=== PATIENT | male | born 1960 | race Hispanic/Latino ===

== ENCOUNTER 2021-05-14 12:57 | Inpatient (IN) | payer MEDICAID ==
[2021-05-14] MEDS ORDERED: ACETAMINOPHEN 325 MG TAB PO SCH (16:00)
[2021-05-14] MEDS ORDERED: ACETAMINOPHEN 325 MG TAB PO PRN (21:51)
[2021-05-14] MEDS ORDERED: risperiDONE 1 MG TAB PO SCH (22:00)
[2021-05-14] MEDS: NITROFURANTOIN MONOHYD/M-CRYST 100 MG CAP PO SCH (23:09)
[2021-05-14] MEDS: ASPIRIN 81 MG TAB CHEW PO SCH (23:10)
[2021-05-15 06:33] LABS: Basophils # (Auto) 0.1 K/mm3 (0.0-0.1); Basophils % (Auto) 0.9 % (0.0-1.8); Eosinophils # (Auto) 0.3 K/mm3 (0.0-0.4); Eosinophils % (Auto) 3.8 % (0.0-4.3); Hematocrit 38.9 % (35.5-45.6); Hemoglobin 13.1 gm/dl (11.8-15.2); Lymphocytes # (Auto) 2.4 K/mm3 (1.2-5.4); Lymphocytes % (Auto) 35.2 % (13.4-35.0); Mean Corpuscular HGB Conc 34 % (32-34); Mean Corpuscular Volume 85 fl (84-94); Monocytes # (Auto) 0.5 K/mm3 (0.0-0.8); Monocytes % (Auto) 7.5 % (0.0-7.3); Platelet Count 217 K/mm3 (140-440); Red Blood Count 4.57 M/mm3 (3.65-5.03); Red Cell Distribution Width 14.1 % (13.2-15.2)
[2021-05-15 08:10] LABS: Alanine Aminotransferase 11 units/L (7-56); Albumin 3.9 g/dL (3.9-5); BUN/Creatinine Ratio 28; Blood Urea Nitrogen 22 mg/dL (9-20); Calcium 9.7 mg/dL (8.4-10.2); Chol/HDL Ratio 4.07 %; HDL Cholesterol 39 mg/dL (40-59); Hemolysis Index 4; LDL Cholesterol,Direct 114 mg/dL (50-130)
[2021-05-15] MEDS: ASPIRIN 81 MG TAB CHEW PO SCH (10:34)
[2021-05-15] MEDS: NITROFURANTOIN MONOHYD/M-CRYST 100 MG CAP PO SCH ×2 (10:34→21:42)
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
[2021-05-15] MEDS: risperiDONE 1 MG TAB PO SCH ×2 (13:04→21:42)
[2021-05-15] MEDS ORDERED: MELATONIN 5 MG TAB PO PRN (22:00)
--- NOTE | 2021-05-16 07:58 | Progress Note ---
Subjective Date of service: 05/16/21 Subjective Comment: The patient was seen in the activity room awaiting breakfast. The patient reports " I feel pretty good this morning." He reports sleep and appetite as good. The patient denies any current suicidal/homicidal ideation and denies hallucinations. Per nurse, the patient had a quiet night. SOCIAL HISTORY Marital Status: single Living Arrangements: alone Employment Status: Disabled Access to guns/weapons: Denies Education: History of Abuse: Denies Legal History: Denies REVIEW OF SYSTEMS Constitutional: Negative for weight loss ENT: Negative for stridor Respiratory: Negative for cough or hemoptysis All other systems reviewed and are negative MENTAL STATUS EXAMINATION General Appearance and Behavior: Age appropriate, good hygiene, wearing appropriate clothes, good eye contact, cooperative polite with questioning. Cooperation: Participating, guarded Psychomotor Behavior: normal Mood: "fine" Affect and affective range: congruent with mood Thought Process: Goal directed Thought Content: Not Suicidal Speech: Normal volume, Regular rate and rhythm Suicidal Ideation: Denies Homicidal Ideation: Denies Hallucinations: Denies Delusions: None Impulse Control: impaired Insight and Judgment: fair insight and judgment Memory:Normal Attention: Divided Orientation: Alert and oriented Assessment and Plan (1) MDD severe w/psychosis, recurrent episodes Current Visit: Yes Status: Acute RECOMMENDATIONS Treatment Plan Patient admitted for inpatient psychiatric evaluation, medication adjustment and close monitoring The patient's behavior, mood, sleep and appetite will be closely monitored. Patient enrolled in individual and group therapeutic sessions and encouraged to attend. Patient provided with a safe and structured environment. Patient's physical health needs will be addressed by the Hospitalist. Hospitalist Consulted Labs including CBC, CMP, Lipid profile and Hemoglobin A1C levels ordered for baseline reference Social Assessment will be completed and the [facility] will work with patient and family to ensure a suitable and safe disposition Medication adjustment will be made as clinically indicated Continue Risperidone 1mg po BID Continue Melatonin 5mg po PRN insomnia Usual Wellness Denominational/Preservation: - Start Trazodone 50 mg po QHS & 50 mg po QHS PRN between 10 PM & 2 AM for insomnia - Start Melatonin 5 mg po QHS to promote circadian rhythm The patient agreed on the treatment plan, understood the risk, benefit, alternative treatment, potential consequence of no treatment, and gave informed consent. Estimated days: 5 Post hospital care: primary care provider, psychiatric provider Case staffed with Dr. Mccurdy Legal Status: Voluntary Reaction to Hospitalization: Accepting Medications and Allergies Allergies Medications and Allergies Allergies Allergy/AdvReac Type Severity Reaction Status Date / Time No Known Allergies Allergy Unverified 05/14/21 12:59 Home Medications Medication Instructions Recorded Confirmed Last Taken Type Acetaminophen [Aphen] 650 mg PO PRN 05/14/21 05/14/21 Unknown History Aspirin [Aspirin BABY CHEW TAB] 81 mg PO QDAY 05/14/21 05/14/21 Unknown History Atorvastatin [Lipitor Tab] 40 mg PO QHS 05/14/21 05/14/21 Unknown History Enoxaparin Sodium [Lovenox] 40 mg SUB-Q HS 05/14/21 05/14/21 05/13/21 21:00 History Nitrofurantoin [place]/M-Cryst 100 mg PO BID 05/14/21 05/14/21 05/14/21 09:00 History [Macrobid CAP] risperiDONE [RisperDAL] 1 mg PO QHS 05/14/21 05/14/21 05/13/21 21:00 History Active Meds: Active Medications Acetaminophen (Acetaminophen 325 Mg Tab) 650 mg PO Q4H PRN PRN Reason: Pain, Mild (1-3) Aspirin (Aspirin 81 Mg Tab Chew) 81 mg PO QDAY [facility] Last Admin: 05/15/21 10:34 Dose: 81 mg Documented by: Atorvastatin Calcium (Atorvastatin 40 Mg Tab) 40 mg PO QHS [facility] Last Admin: 05/15/21 21:42 Dose: 40 mg Documented by: Melatonin (Melatonin 5 Mg Tab) 5 mg PO QHS PRN PRN Reason: Sleep Risperidone (Risperidone 1 Mg Tab) 1 mg PO BID [facility] Last Admin: 05/15/21 21:42 Dose: 1 mg Documented by: Results - Results Labs/Vitals: Laboratory Last Values WBC 6.9 K/mm3 (4.5-11.0) 05/15/21 05:50 RBC 4.57 M/mm3 (3.65-5.03) 05/15/21 05:50 Hgb 13.1 gm/dl (11.8-15.2) 05/15/21 05:50 Hct 38.9 % (35.5-45.6) 05/15/21 05:50 MCV 85 fl (84-94) 05/15/21 05:50 MCH 29 pg (28-32) 05/15/21 05:50 MCHC 34 % (32-34) 05/15/21 05:50 RDW 14.1 % (13.2-15.2) 05/15/21 05:50 Plt Count 217 K/mm3 (140-440) 05/15/21 05:50 Lymph % (Auto) 35.2 % (13.4-35.0) H 05/15/21 05:50 [place] % (Auto) 7.5 % (0.0-7.3) H 05/15/21 05:50 Eos % (Auto) 3.8 % (0.0-4.3) 05/15/21 05:50 Baso % (Auto) 0.9 % (0.0-1.8) 05/15/21 05:50 Lymph # (Auto) 2.4 K/mm3 (1.2-5.4) 05/15/21 05:50 [place] # (Auto) 0.5 K/mm3 (0.0-0.8) 05/15/21 05:50 Eos # (Auto) 0.3 K/mm3 (0.0-0.4) 05/15/21 05:50 Baso # (Auto) 0.1 K/mm3 (0.0-0.1) 05/15/21 05:50 Seg Neutrophils % 52.6 % (40.0-70.0) 05/15/21 05:50 Seg Neutrophils # 3.6 K/mm3 (1.8-7.7) 05/15/21 05:50 Sodium 142 mmol/L (137-145) 05/15/21 05:50 Potassium 4.2 mmol/L (3.6-5.0) 05/15/21 05:50 Chloride 106.9 mmol/L (98-107) 05/15/21 05:50 Carbon Dioxide 21 mmol/L (22-30) L 05/15/21 05:50 Anion Gap 18 mmol/L 05/15/21 05:50 BUN 22 mg/dL (9-20) H 05/15/21 05:50 Creatinine 0.8 mg/dL (0.8-1.3) 05/15/21 05:50 Estimated GFR > 60 ml/min 05/15/21 05:50 BUN/Creatinine Ratio 28 % 05/15/21 05:50 Glucose 94 mg/dL (75-100) 05/15/21 05:50 POC Glucose 106 mg/dL (70-105) H 05/14/21 21:59 Hemoglobin A1c 5.7 % (4-6) 05/15/21 05:50 Calcium 9.7 mg/dL (8.4-10.2) 05/15/21 05:50 Total Bilirubin 0.30 mg/dL (0.1-1.2) 05/15/21 05:50 AST 15 units/L (5-40) 05/15/21 05:50 ALT 11 units/L (7-56) 05/15/21 05:50 Alkaline Phosphatase 89 units/L (35-129) 05/15/21 05:50 Total Protein 7.2 g/dL (6.3-8.2) 05/15/21 05:50 Albumin 3.9 g/dL (3.9-5) 05/15/21 05:50 Albumin/Globulin Ratio 1.2 % 05/15/21 05:50 Triglycerides 75 mg/dL (2-149) 05/15/21 05:50 Cholesterol 159 mg/dL (50-199) 05/15/21 05:50 LDL Cholesterol Direct 114 mg/dL (50-130) 05/15/21 05:50 HDL Cholesterol 39 mg/dL (40-59) L 05/15/21 05:50 Cholesterol/HDL Ratio 4.07 % 05/15/21 05:50 TSH 1.960 mlU/mL (0.270-4.200) 05/15/21 05:50 Last Vital Signs Temp 98.6 F 05/15/21 19:27 Pulse 79 05/15/21 19:27 Resp 18 05/15/21 19:27 BP 106/72 05/15/21 19:27 Pulse Ox 95 05/15/21 19:27
[2021-05-16] MEDS: ASPIRIN 81 MG TAB CHEW PO SCH (09:28)
[2021-05-16] MEDS: risperiDONE 1 MG TAB PO SCH ×2 (09:28→21:01)
--- NOTE | 2021-05-16 13:05 | Consultation ---
History of Present Illness - Reason for Consult Consult date: 05/15/21 Medical management Requesting physician: SUJATA MALCOLM - History of Present Illness 60 YO Male with DANE, Depression admitted to [facility] for psychiatric stabilization. Consult placed by Dr. Malcolm for medical management. Patient seen and evaluated in the recreation room. Patient denies fever, chills, chest pain, palpitation, productive cough, recent ill contacts, or known exposure to COVID-19. No reported nursing events. Patient cooperative. Past History Past Medical History: other (See HPI) Past Surgical History: No surgical history, Other (Reviewed) Social history: single. denies: smoking, alcohol abuse Family history: no significant family history, other (Reviewed) Medications and Allergies Allergies Allergy/AdvReac Type Severity Reaction Status Date / Time No Known Allergies Allergy Unverified 05/14/21 12:59 Home Medications Medication Instructions Recorded Confirmed Last Taken Type Acetaminophen [Aphen] 650 mg PO PRN 05/14/21 05/14/21 Unknown History Aspirin [Aspirin BABY CHEW TAB] 81 mg PO QDAY 05/14/21 05/14/21 Unknown History Atorvastatin [Lipitor Tab] 40 mg PO QHS 05/14/21 05/14/21 Unknown History Enoxaparin Sodium [Lovenox] 40 mg SUB-Q HS 05/14/21 05/14/21 05/13/21 21:00 History Nitrofurantoin [place]/M-Cryst 100 mg PO BID 05/14/21 05/14/21 05/14/21 09:00 History [Macrobid CAP] risperiDONE [RisperDAL] 1 mg PO QHS 05/14/21 05/14/21 05/13/21 21:00 History Active Meds: Active Medications Acetaminophen (Acetaminophen 325 Mg Tab) 650 mg PO Q4H PRN PRN Reason: Pain, Mild (1-3) Aspirin (Aspirin 81 Mg Tab Chew) 81 mg PO QDAY [facility] Last Admin: 05/16/21 09:28 Dose: 81 mg Documented by: Atorvastatin Calcium (Atorvastatin 40 Mg Tab) 40 mg PO QHS [facility] Last Admin: 05/15/21 21:42 Dose: 40 mg Documented by: Melatonin (Melatonin 5 Mg Tab) 5 mg PO QHS PRN PRN Reason: Sleep Risperidone (Risperidone 1 Mg Tab) 1 mg PO BID [facility] Last Admin: 05/16/21 09:28 Dose: 1 mg Documented by: Review of Systems Constitutional: no weight loss, no weight gain, no fever, no chills Ears, nose, mouth and throat: no ear pain, no ear discharge, no decreased hearing, no nose pain, no nasal discharge Cardiovascular: no chest pain, no orthopnea, no palpitations, no edema, no syncope, no lightheadedness Respiratory: no cough, no cough with sputum, no excessive sputum, no hemoptysis, no dyspnea on exertion Gastrointestinal: no abdominal pain, no nausea, no diarrhea, no change in bowel habits Genitourinary Male: no dysuria, no hematuria, no flank pain, no urinary frequency, no urinary hesitancy Rectal: no pain, no incontinence, no bleeding Musculoskeletal: no neck stiffness, no neck pain, no shooting arm pain, no arm numbness/tingling, no low back pain Integumentary: no rash, no pruritis, no redness, no sores, no wounds, no blisters Neurological: no head injury, no transient paralysis, no weakness, no tingling, no ataxia Psychiatric: no change in appetite, no disorientation, no anxiety attacks, no difficulties concentrating, no confusion Endocrine: no cold intolerance, no heat intolerance, no excessive thirst, no polydipsia, no excessive sweating Hematologic/Lymphatic: no easy bruising, no easy bleeding Allergic/Immunologic: no allergic rhinitis, no wheezing Exam - Constitutional Vitals: Temp Pulse Resp BP Pulse Ox 98.2 F 64 18 113/73 98 05/16/21 08:24 05/16/21 08:24 05/16/21 08:24 05/16/21 08:24 05/16/21 08:24 General appearance: Present: no acute distress, well-nourished - EENT Eyes: Present: PERRL ENT: hearing intact, clear oral mucosa - Neck Neck: Present: supple, normal ROM - Respiratory Respiratory effort: normal Respiratory: bilateral: CTA - Cardiovascular Heart Sounds: Present: S1 & S2. Absent: rub, click - Extremities Extremities: pulses symmetrical, No edema Peripheral Pulses: within normal limits - Abdominal General gastrointestinal: Present: soft, non-tender, non-distended, normal bowel sounds Male genitourinary: Present: normal - Integumentary Integumentary: Present: clear, warm, dry - Musculoskeletal Musculoskeletal: gait normal, strength equal bilaterally - Psychiatric Psychiatric: appropriate mood/affect, intact judgment & insight - Neurologic Neurologic: CNII-XII intact, moves all extremities Results - Labs CBC & Chem 7: 05/15/21 05:50 05/15/21 05:50 Assessment and Plan - Patient Problems (1) Generalized anxiety disorder Current Visit: Yes Status: Acute Plan to address problem: Anxiolytic therapy as clinically indicated. (2) Depression Current Visit: Yes Status: Acute Plan to address problem: Continue medical management. (3) Hyperlipidemia Current Visit: Yes Status: Acute Qualifiers: Hyperlipidemia type: mixed hyperlipidemia Qualified Code(s): E78.2 - Mixed hyperlipidemia Plan to address problem: Low-cholesterol diet, risk factor reduction, supportive care. Continue current management.
--- NOTE | 2021-05-17 08:39 | Discharge Summary ---
Providers - Providers Date of Admission: 05/14/21 21:46 Date of discharge: 05/17/21 Attending physician: SUJATA MALCOLM MD 05/14/21 13:10 Consult to Physician [CONS] Routine Comment: Consulting Provider: ANNETTE MEDRANO Physician Instructions: Reason For Exam: manage medical conditions Primary care physician: DIRECTOR OF QUALITY Hospitalization Reason for admission: Depression Admitting Diagnosis: F33.3 - MAJOR DEPRESSV DISORDER, RECURRENT, SEVERE W PSYCH SYMPTOMS Condition: Stable Hospital course: The patient was provided inpatient psychiatric treatment with safe and supportive environment, group/individual therapy, psychiatric medication, medication adjustment, adverse effect monitor, medical evaluation, medical treatment, social service assessment, social support meeting, placement assessment and psycho-education. The patients mood, cognition, behavior, motivation, compliance to treatment and appreciation on family/social support are improved and stabilized. At the time of discharge, the patient had no suicidal ideas, no homicidal ideas, no aggressive thoughts, no endangering behavior and no debilitating adverse effects. The patient agreed on the treatment plan, understood the risk, benefit, alternative treatment, potential consequence of no treatment, and gave informed consent. Progress note: 05/16/2021: The patient was seen in the activity room awaiting breakfast. The patient reports " I feel pretty good this morning." He reports sleep and appetite as good. The patient denies any current suicidal/homicidal ideation and denies hallucinations. Per nurse, the patient had a quiet night. Disposition: HOME / SELF CARE / HOMELESS Allergies/Adverse Reactions: Allergies No Known Allergies Allergy (Unverified 05/14/21 12:59) Vital Signs: Last Vital Signs Temp 97.5 F L 05/16/21 21:08 Pulse 74 05/16/21 21:08 Resp 18 05/16/21 21:08 BP 112/69 05/16/21 21:08 Pulse Ox 96 05/16/21 21:08 Last Lab: Laboratory Last Values WBC 6.9 K/mm3 (4.5-11.0) 05/15/21 05:50 RBC 4.57 M/mm3 (3.65-5.03) 05/15/21 05:50 Hgb 13.1 gm/dl (11.8-15.2) 05/15/21 05:50 Hct 38.9 % (35.5-45.6) 05/15/21 05:50 MCV 85 fl (84-94) 05/15/21 05:50 MCH 29 pg (28-32) 05/15/21 05:50 MCHC 34 % (32-34) 05/15/21 05:50 RDW 14.1 % (13.2-15.2) 05/15/21 05:50 Plt Count 217 K/mm3 (140-440) 05/15/21 05:50 Lymph % (Auto) 35.2 % (13.4-35.0) H 05/15/21 05:50 [place] % (Auto) 7.5 % (0.0-7.3) H 05/15/21 05:50 Eos % (Auto) 3.8 % (0.0-4.3) 05/15/21 05:50 Baso % (Auto) 0.9 % (0.0-1.8) 05/15/21 05:50 Lymph # (Auto) 2.4 K/mm3 (1.2-5.4) 05/15/21 05:50 [place] # (Auto) 0.5 K/mm3 (0.0-0.8) 05/15/21 05:50 Eos # (Auto) 0.3 K/mm3 (0.0-0.4) 05/15/21 05:50 Baso # (Auto) 0.1 K/mm3 (0.0-0.1) 05/15/21 05:50 Seg Neutrophils % 52.6 % (40.0-70.0) 05/15/21 05:50 Seg Neutrophils # 3.6 K/mm3 (1.8-7.7) 05/15/21 05:50 Sodium 142 mmol/L (137-145) 05/15/21 05:50 Potassium 4.2 mmol/L (3.6-5.0) 05/15/21 05:50 Chloride 106.9 mmol/L (98-107) 05/15/21 05:50 Carbon Dioxide 21 mmol/L (22-30) L 05/15/21 05:50 Anion Gap 18 mmol/L 05/15/21 05:50 BUN 22 mg/dL (9-20) H 05/15/21 05:50 Creatinine 0.8 mg/dL (0.8-1.3) 05/15/21 05:50 Estimated GFR > 60 ml/min 05/15/21 05:50 BUN/Creatinine Ratio 28 % 05/15/21 05:50 Glucose 94 mg/dL (75-100) 05/15/21 05:50 POC Glucose 106 mg/dL (70-105) H 05/14/21 21:59 Hemoglobin A1c 5.7 % (4-6) 05/15/21 05:50 Calcium 9.7 mg/dL (8.4-10.2) 05/15/21 05:50 Total Bilirubin 0.30 mg/dL (0.1-1.2) 05/15/21 05:50 AST 15 units/L (5-40) 05/15/21 05:50 ALT 11 units/L (7-56) 05/15/21 05:50 Alkaline Phosphatase 89 units/L (35-129) 05/15/21 05:50 Total Protein 7.2 g/dL (6.3-8.2) 05/15/21 05:50 Albumin 3.9 g/dL (3.9-5) 05/15/21 05:50 Albumin/Globulin Ratio 1.2 % 05/15/21 05:50 Triglycerides 75 mg/dL (2-149) 05/15/21 05:50 Cholesterol 159 mg/dL (50-199) 05/15/21 05:50 LDL Cholesterol Direct 114 mg/dL (50-130) 05/15/21 05:50 HDL Cholesterol 39 mg/dL (40-59) L 05/15/21 05:50 Cholesterol/HDL Ratio 4.07 % 05/15/21 05:50 TSH 1.960 mlU/mL (0.270-4.200) 05/15/21 05:50 Core Measure Documentation - Palliative Care Palliative Care/ Comfort Measures: Not Applicable - Core Measures Any of the following diagnoses?: none - VTE Discharge Requirements Deep Vein Thrombosis/Pulmonary Embolism Present on Admission: No Exam - Constitutional Vitals: Temp Pulse Resp BP Pulse Ox 97.5 F L 74 18 112/69 96 05/16/21 21:08 05/16/21 21:08 05/16/21 21:08 05/16/21 21:08 05/16/21 21:08 Plan Activity: advance as tolerated Weight Bearing Status: Weight Bear as Tolerated Diet: regular Care Plan Goals: Maintain good and stable mental health. Plan of Treatment: The patient should be compliant with medications, not to use drugs and not to drink alcohol. The patient understands that if suicidal ideas, homicidal ideas, or any endangering thoughts arise, the patient should immediately seek for emergent assistance including but not limited to crisis hot line and emergency room. Follow up with outpatient Psychiatrist and PCP within 7 - 14 days of discharge. Follow up with: PRIMARY CARE,MD [Primary Care Provider] - 7 Days Prescriptions: Melatonin [Melatonin 5MG TAB] 5 mg PO QHS PRN 30 Days #30 tablet PRN Reason: Sleep risperiDONE [RisperDAL] 1 mg PO BID 30 Days #60 tablet
[2021-05-17 08:45] VITALS: BP 107/58
[2021-05-17] MEDS: ASPIRIN 81 MG TAB CHEW PO SCH (09:12)
[2021-05-17] MEDS: risperiDONE 1 MG TAB PO SCH (09:12)
== END 2021-05-17 09:45 | disposition home or self-care (01) | DRG 885 ==
LOC: UNDOADMIN 12:57 → 3A 12:57 → 5A 21:46
PROVIDERS: ADMIT Psychiatry & Neurology Psychiatry; ATTEND Psychiatry & Neurology Psychiatry
DX: F33.3 Major depressive disorder, recurrent, severe with psychotic symptoms (principal); F39 Unspecified mood [affective] disorder; Z79.82 Long term (current) use of aspirin; F41.1 Generalized anxiety disorder; E78.2 Mixed hyperlipidemia
CPT/HCPCS: 36415; 80053; 80061; 82962; 83036; 84443; 85025; G0378; A9270-GY